=== PATIENT | female | born 1945 | race Caucasian/White ===

== ENCOUNTER → 2017-06-02 | Outpatient (CLI) | payer OTHER | LOC: EDSTATUS 05-27 09:24 → MRI 05-27 12:00 | DX: M47.896 Other spondylosis, lumbar region (principal); M54.16 Radiculopathy, lumbar region ==

== ENCOUNTER → 2017-06-15 | Outpatient (CLI) | payer OTHER ==
--- NOTE | ~2017-06-15 | 2DMMODE ---
[facility] [place] [address] 2 D/M-MODE ECHOCARDIOGRAM Name: STEPHEN GONSALEZ Room #: REG [facility]#: [id number] Admission: 06/15/17 Attend Phys: Joaquín You Discharge: Date of : 41 Date of Service: 06/15/17 1012 Report #: [id number] THIS REPORT FOR: //name// APPROVED REPORT Study performed: 06/15/2017 07:38:11 EXAM: Comprehensive 2D, Doppler, and color-flow Echocardiogram Patient Location: Out-Patient Status: routine BSA: 1.85 HR: 75 bpm BP: 150/91 mmHg Rhythm: NSR, PAC'S Other Information Study Quality: Good Indications Arrhythmia 2D Dimensions RVDd: 32.02 mm LVEF(%): 62.04 (>50%) IVSd: 9.97 (7-11mm) LVOT Diam: 21.17 (18-24mm) LVDd: 42.54 mm PWd: 9.08 (7-11mm) Ascending Ao: 28.97 (22-36mm) LVDs: 28.45 (25-40mm) Aortic Root: 30.30 mm Brown's LVEF: 62.04 % Volumes Left Atrial Volume (Systole) Single Plane 4CH: 37.14 mL Single Plane 2CH: 41.17 mL LA ESV Index: 24.00 mL/m2 Aortic Valve AoV Peak Yo.: 1.46 m/s AO Peak Gr.: 8.49 mmHg LVOT Max P.64 mmHg LVOT Max V: 1.08 m/s AARON Vmax: 2.60 cm2 Mitral Valve E/A Ratio: 0.8 MV Decel. Time: 217.18 ms [facility] [employer] [place] [address] 2 D/M-MODE ECHOCARDIOGRAM Name: STEPHEN GONSALEZ Room #: [facility]#: [id number] Admission: 06/15/17 Attend Phys: Joaquín You Discharge: Date of : 41 Date of Service: 06/15/17 1012 Report #: [id number] MV E Max Yo.: 0.66 m/s MV A Yo.: 0.85 m/s MV PHT: 62.98 ms IVRT: 106.11 ms Pulmonary Valve PV Peak Yo.: 1.16 m/s PV Peak Gr.: 5.41 mmHg Pulmonary Vein P Vein S: 0.59 m/s P Vein A: 0.35 m/s P Vein D: 0.29 m/s P Vein A Dur.: 138.4 msec P Vein S/D Ratio: 2.03 Tricuspid Valve TR Peak Yo.: 3.08 m/s RAP Estimate: 5.00 mmHg TR Peak Gr.: 37.99 mmHg PA Pressure: 43.00 mmHg Left Ventricle The left ventricle is normal size. There is normal LV segmental wall motion. Mild basal septal hypertrophy is present. Left ventricular systolic function is normal. LVEF is 60%. Mild diastolic dysfunction is present (impaired relaxation pattern). Right Ventricle The right ventricle is normal size. The right ventricular systolic function is normal. Atria The left atrium size is normal. The right atrium size is normal. Aortic Valve Aortic valve is mildly calcified. Trace aortic regurgitation. There is no aortic valvular stenosis. Mitral Valve The mitral valve is normal in structure. Mild mitral regurgitation. Tricuspid Valve The tricuspid valve is normal in structure. Moderate tricuspid regurgitation. Estimated PAP is 40-45mmHg. Pulmonic Valve The pulmonary valve is normal in structure. Mild pulmonic [address] [address] 2 D/M-MODE ECHOCARDIOGRAM Name: WALLACESTEPHEN S Room #: REG Tammy#: [id number] Admission: 06/15/17 Attend Phys[facility]: Date of : 41 Date of Service: 06/15/17 1012 Report #: [id number] regurgitation. Great Vessels The aortic root is normal in size. The ascending aorta is normal in size. IVC is normal in size and collapses >50% with inspiration. Pericardium There is no pericardial effusion. <Conclusion> The left ventricle is normal size. LVEF is 60%. The mitral valve is normal in structure. Mild mitral regurgitation. Aortic valve is mildly calcified. Trace aortic regurgitation. The tricuspid valve is normal in structure. Moderate tricuspid regurgitation. Estimated PAP is 40-45mmHg. The pulmonary valve is normal in structure. Mild pulmonic regurgitation. <ELECTRONICALLY SIGNED> By: Haja Patterson MD 06/15/17 1012 1012 1012 Haja Patterson MD /INF
== END ==
LOC: NUC 07:10
DX: I47.1 Supraventricular tachycardia (principal)

== ENCOUNTER → 2019-05-03 | Outpatient (CLI) | payer OTHER ==
[~2019-05-03] MED LIST: ASPIR 8181 MG PO; CLARITIN10 MG PO; EYE DROP15 ML OPHTHALMIC; TRAMADOL 50 MG50 MG PO
--- NOTE | 2019-05-03 14:16 | 2DMMODE ---
[facility] [address] [place] [address] 2 D/M-MODE ECHOCARDIOGRAM Name: STEPHEN GONSALEZ Room #: [facility]#: [id number] Admission: 05/03/19 Attend Phys: Joaquín You Discharge: Date of : 41 Date of Service: 05/03/19 1416 Report #: [id number] THIS REPORT FOR: //name// APPROVED REPORT Study performed: 05/03/2019 13:17:00 EXAM: Comprehensive 2D, Doppler, and color-flow Echocardiogram Patient Location: Out-Patient Room #: Echo lab 2 Status: routine BSA: 1.81 Indications Palpitations Atrial tachycardia 2D Dimensions RVDd: 33.36 mm IVSd: 10.36 (7-11mm) LVOT Diam: 21.16 (18-24mm) LVDd: 38.96 mm PWd: 11.44 (7-11mm) Ascending Ao: 28.13 (22-36mm) LVDs: 23.69 (25-40mm) Aortic Root: 29.08 mm IVC: 16.00 mm Volumes Left Atrial Volume (Systole) Single Plane 4CH: 35.35 mL Single Plane 2CH: 64.79 mL LA ESV Index: 32.00 mL/m2 Aortic Valve AoV Peak Yo.: 1.33 m/s AO Peak Gr.: 7.11 mmHg LVOT Max P.19 mmHg LVOT Max V: 1.02 m/s AARON Vmax: 2.70 cm2 Mitral Valve E/A Ratio: 0.7 MV Decel. Time: 157.08 ms MV E Max Yo.: 0.73 m/s MV A Yo.: 1.04 m/s MV PHT: 45.55 ms IVRT: 115.34 ms [facility] [place] [address] 2 D/M-MODE ECHOCARDIOGRAM Name: STEPHEN GONSALEZ Room #: [facility]#: [id number] Admission: 05/03/19 Attend Phys: Joaquín You Discharge: Date of : 41 Date of Service: 05/03/19 1416 Report #: [id number] Pulmonary Valve PV Peak Yo.: 1.38 m/s PV Peak Gr.: 7.87 mmHg Pulmonary Vein P Vein S: 0.49 m/s P Vein A: 0.31 m/s P Vein D: 0.32 m/s P Vein A Dur.: 166.1 msec P Vein S/D Ratio: 1.53 Tricuspid Valve TR Peak Yo.: 3.14 m/s TR Peak Gr.: 39.53 mmHg PA Pressure: 45.00 mmHg Left Ventricle The left ventricle is normal size. There is normal left ventricular wall thickness. The left ventricular systolic function is normal. The left ventricular ejection fraction is within the normal range. LVEF is 55-60%. Grade I - abnormal relaxation pattern. Right Ventricle The right ventricle is normal size. The right ventricular systolic function is normal. Atria The left atrium size is normal. The right atrium size is normal. Aortic Valve The aortic valve is normal in structure. No aortic regurgitation is present. There is no aortic valvular stenosis. Mitral Valve The mitral valve is normal in structure. Mild mitral regurgitation. No evidence of mitral valve stenosis. Tricuspid Valve The tricuspid valve is normal in structure. There is moderate tricuspid regurgitation. Estimated PAP 45 mmHg. There is moderate pulmonary hypertension. Pulmonic Valve The pulmonary valve is normal in structure. Trace pulmonic regurgitation. Great Vessels The aortic root is normal in size. IVC is normal in size and [facility] [address] [place] [address] 2 D/M-MODE ECHOCARDIOGRAM Name: WALLACESTEPHEN S Room #: SALLY Munoz#: [id number] Admission: 05/03/19 Attend Phys: Joaquín You Discharge: Date of : 41 Date of Service: 05/03/19 1416 Report #: [id number] collapses >50% with inspiration. Pericardium There is no pericardial effusion. <Conclusion> The left ventricle is normal size. LVEF is 55-60%. The aortic valve is normal in structure. The mitral valve is normal in structure. Mild mitral regurgitation. The tricuspid valve is normal in structure. There is moderate tricuspid regurgitation. Estimated PAP 45 mmHg. There is moderate pulmonary hypertension. The pulmonary valve is normal in structure. Trace pulmonic regurgitation. There is no pericardial effusion. <ELECTRONICALLY SIGNED> By: Haja Patterson MD 05/03/19 1416 1416 141 Haja Patterson MD /INF
== END ==
LOC: CV 09:02
DX: I08.1 Rheumatic disorders of both mitral and tricuspid valves (principal); I27.20 Pulmonary hypertension, unspecified

== ENCOUNTER → 2019-07-17 | Outpatient (CLI) | payer OTHER | LOC: CAT 13:19 | DX: Z13.6 Encounter for screening for cardiovascular disorders (principal); E78.00 Pure hypercholesterolemia, unspecified; I25.10 Atherosclerotic heart disease of native coronary artery without angina pectoris ==

== ENCOUNTER → 2019-11-08 | Outpatient (CLI) | payer OTHER | LOC: SJCVC 15:07 | DX: I47.1 Supraventricular tachycardia (principal); I49.1 Atrial premature depolarization; K21.9 Gastro-esophageal reflux disease without esophagitis; G89.29 Other chronic pain; Z79.82 Long term (current) use of aspirin; Z79.84 Long term (current) use of oral hypoglycemic drugs; Z79.899 Other long term (current) drug therapy ==

== ENCOUNTER → 2020-05-21 | Outpatient (CLI) | payer OTHER | LOC: SJCVC 11:36 | PROVIDERS: ATTEND Internal Medicine Cardiovascular Disease | DX: R94.31 Abnormal electrocardiogram [ECG] [EKG] (principal); I44.4 Left anterior fascicular block; I47.1 Supraventricular tachycardia; Z79.899 Other long term (current) drug therapy ==

== ENCOUNTER → 2020-11-19 | Outpatient (CLI) | payer OTHER | LOC: SJCVC 10:09 | PROVIDERS: ATTEND Internal Medicine Cardiovascular Disease | DX: I44.4 Left anterior fascicular block (principal); R94.31 Abnormal electrocardiogram [ECG] [EKG]; I47.1 Supraventricular tachycardia; I49.1 Atrial premature depolarization; Z79.82 Long term (current) use of aspirin; Z79.899 Other long term (current) drug therapy ==

== ENCOUNTER → 2021-05-27 | Outpatient (CLI) | payer OTHER | LOC: SJCVC 09:53 | PROVIDERS: ATTEND Internal Medicine Cardiovascular Disease | DX: R94.31 Abnormal electrocardiogram [ECG] [EKG] (principal); I44.4 Left anterior fascicular block; I47.1 Supraventricular tachycardia; I49.1 Atrial premature depolarization; Z79.82 Long term (current) use of aspirin; Z79.899 Other long term (current) drug therapy ==

== ENCOUNTER → 2021-08-26 | Outpatient (CLI) | payer OTHER ==
[~2021-08-26] MED LIST changes: +ALAWAY10 ML OPHTHALMIC; +ASPIRIN EC81 M1 PO; +BIOSIL PO; +BIOTIN5000 MCG PO; +CINNAMON500 MG PO; +COSAMIN DS CAP1 EACH PO; +FISH OIL 1,001000 M3 PO; +FLECAINIDE ACET50 M1 PO; +METAMUCIL1 EAC1 PO; +SV CALCIUM-MAG1 EACH PO; +TURMERIC500 M2 PO; +VITAMIN C1000 MG PO; +VITAMIN D350 MCG PO
== END ==
LOC: LAB 10:12
PROVIDERS: ATTEND Student in an Organized Health Care Education/Training Program
DX: Z01.812 Encounter for preprocedural laboratory examination (principal); Z20.822 Contact with and (suspected) exposure to COVID-19

== ENCOUNTER → 2021-08-27 | Outpatient (CLI) | payer OTHER ==
[~2021-08-27] VITALS: Ht 167.6 cm; Wt 67.1 kg
--- NOTE | 2021-08-30 11:02 | P ---
[facility] [place] [address] PROCEDURE REPORT Name: STEPHEN GONSALEZ Room #: REG [facility]#: [id number] Admission: 08/27/21 Attend Phys: Alex Lopez Discharge: Date of : 41 Report #: [id number] THIS REPORT FOR: cc: Rubin Ruiz MD, Neal A. MD McElhinney, Christian C. MD ~ cc: Rubin Ruiz MD DATE OF SERVICE: 08/27/2021 PROCEDURE PERFORMED: Colonoscopy with biopsies. HISTORY OF PRESENT ILLNESS: The patient is a 75-year-old female who presents today with a history of colon polyps, colonoscopy 6 years ago. She denies any symptoms at this time. No family history of colon cancer. DESCRIPTION OF PROCEDURE: The risks and benefits of the procedure were explained to the patient, those risks including but not limited to bleeding, perforation and the risk of sedation. She understood these risks and gave informed consent. Sedation was given using propofol per anesthesia. Next, a digital rectal exam was initially performed, which was normal. Next, using a standard Olympus colonoscope, the scope was placed in the patient's anus and advanced under direct vision to the cecum. The overall prep was excellent. There was a 3 mm sessile polyp in the cecum. This was removed with cold forceps. The ileocecal valve was normal. In the ascending colon, a 4 mm sessile polyp was noted and removed with cold forceps, otherwise normal. The transverse and descending colon were normal. Multiple diverticula were noted in the sigmoid colon. A few diverticula were noted in the sigmoid colon. The rectal mucosa was normal. On retroflexion, small nonbleeding internal hemorrhoids were noted. The scope was then withdrawn and the procedure terminated. The patient tolerated the procedure well. IMPRESSION: 1. Two small colonic polyps. 2. Sigmoid diverticulosis. 3. Otherwise, normal colonoscopy. RECOMMENDATIONS: 1. Await biopsy results. 2. Repeat colonoscopy in [address] [address] PROCEDURE REPORT Name: STEPHEN GONSALEZ Room #: [facility] Tammy#: [id number] Admission: 08/27/21 Attend Phys: Alex Lopez Discharge: Date of : 41 Report #: [id number] Thank you for allowing me to participate in her care. <ELECTRONICALLY SIGNED> By: Alex Delgado MD 08/30/21 1102 0912 1216 Alex Delgado MD /nt
--- NOTE | 2021-09-02 12:06 | PATH ---
[facility] [address] [place] [address] PATHOLOGY RPT PROCEDURE Name: DEIRDRE HAMILTON Jaquan Room #: REG [facility] Munoz#: [id number] Admission: 08/27/21 Date of : 41 Discharge: Report #: [id number] Path Case #: [id number] [facility] Accession Number: [id number] . 01 Material submitted: . PART A: cecum - CECAL POLYP X1 PART B: colon - ASCENDING COLON POLYP X1. Modifiers: ascending . 01 Clinical history: . HISTORY OF POLYPS DIVERTICULOSIS . 02 Diagnosis: A. Large bowel "cecal polyp", biopsy: - Tubular adenoma; negative for high-grade dysplasia and malignancy. . B. Large bowel "ascending colon polyp", biopsy: - Tubular adenoma; negative for high-grade dysplasia and malignancy. . (KARLY:wali; 09/01/2021) MBSusanne 09/01/2021 1708 Local . 02 Electronically signed: . Levi Dahl MD, Pathologist NPI- [id number] . 01 Gross description: . A. The specimen is received in formalin, labeled "Deirdre Hamilton, cecal polyp". Received are 4 segments of pale borrego tissue ranging in size from 0.2 cm to 0.3 cm in maximum dimensions. The specimen is submitted entirely in cassette A1. . B. The specimen is received in formalin, labeled "Deirdre Hamilton, ascending colon polyp". Received are 2 segments of pale borrego tissue ranging in size from 0.3 to 0.4 cm in maximum dimensions. The specimen is submitted entirely in cassette B1.([facility]; 08/28/2021) [facility] 08/28/2021 1250 Local . 02 Pathologist provided ICD-10: D12.0, D12.2 . 02 CPT . 577617, 859985 Specimen Comment: A courtesy copy of this report has been sent to [phone] Specimen Comment: [id number] Specimen Comment: Report sent to / [place] [address] PATHOLOGY RPT PROCEDURE Name: DEIRDRE HAMILTON Room #: REG PAVEL Munoz#: [id number] Admission: 08/27/21 Date of : 41 Discharge: Report #: [id number] Path Case #: [id number] Performed at: 01 [facility] [address] [id number] MD Castillo Beckford MD Phone: [phone] Performed at: 02 [facility] [id number] [address] [id number] MD Rashad Mckeon MD Phone: [phone]
== END | disposition home or self-care (01) ==
LOC: GI 07:54
PROVIDERS: ATTEND Specialist
DX: Z12.11 Encounter for screening for malignant neoplasm of colon (principal); Z86.010 Personal history of colon polyps; D12.0 Benign neoplasm of cecum; D12.2 Benign neoplasm of ascending colon; K57.30 Diverticulosis of large intestine without perforation or abscess without bleeding; K21.9 Gastro-esophageal reflux disease without esophagitis; Z98.890 Other specified postprocedural states; Z79.899 Other long term (current) drug therapy
CPT/HCPCS: 62110; 62900